=== PATIENT | male | born 1985 | race Hispanic/Latino ===

== ENCOUNTER 2017-05-11 21:24 | Inpatient (IN) | payer OTHER ==
[2017-05-11] MEDS ORDERED: HYDROmorphone 0.5 mg/0.5 ml ISec IVP STA (22:25)
--- NOTE | 2017-05-11 22:46 | ED PDOC ---
Upper Extremity Pain/Injury Time Seen by Provider: 05/11/17 22:04 Chief Complaint (Nursing): Upper Extremity Problem/Injury Chief Complaint (Provider): upper injury History Per: Patient (32 y/o here with complaint of right arm injury that occurred today during armwrestling. Has h/o previous elbow dislocation.) Past Medical History Reviewed: Historical Data, Nursing Documentation, Vital Signs Vital Signs: Last Vital Signs Temp 98.0 F 05/11/17 21:41 Pulse 96 H 05/11/17 21:41 Resp 16 05/11/17 21:41 BP 200/117 H 05/11/17 21:41 Pulse Ox 100 05/11/17 21:41 - Surgical History Surgical History: Tonsillectomy - Family History Family History: States: No Known Family Hx - Allergies Allergies/Adverse Reactions: Allergies Allergy/AdvReac Type Severity Reaction Status Date / Time No Known Allergies Allergy Verified 05/11/17 21:40 Review of Systems ROS Statement: Except As Marked, All Systems Reviewed And Found Negative Physical Exam - Reviewed Nursing Documentation Reviewed: Yes Vital Signs Reviewed: Yes - Physical Exam Appears: Positive for: Well, Non-toxic, No Acute Distress Head Exam: Positive for: ATRAUMATIC, NORMAL INSPECTION, NORMOCEPHALIC Skin: Positive for: Normal Color, Warm, DRY Eye Exam: Positive for: EOMI, Normal appearance, PERRL ENT: Positive for: Normal ENT Inspection Neck: Positive for: Normal, Painless ROM Cardiovascular/Chest: Positive for: Regular Rate, Rhythm Respiratory: Positive for: CNT, Normal Breath Sounds Gastrointestinal/Abdominal: Positive for: Normal Exam, Bowel Sounds, Soft Back: Positive for: Normal Inspection Extremity: Positive for: Normal ROM, Other (tenderness noted by elbow. Patient noted moderate tenderness instability distal humerus. Nontender shoulder.) Neurologic/Psych: Positive for: Alert, Oriented - Laboratory Results Result Diagrams: 05/11/17 22:50 05/11/17 22:50 - ECG O2 Sat by Pulse Oximetry: 100 - Progress ED Course And Treament: dilaudid 1 mg iv x 1 dose placed in sugartong splint for comfort. Xry of elbow: fx of mid-humerus with dislocation xry of shoulder: no fx xry of forearm: no fx xry of humerus: (+) fx mid-humerus dislocation d/w Dr. Kamara. Seen with Dr. Kamara for reduction. Verbal consent prior to procedure. Lidocaine 1% 10 ml hematoma block by Dr. kamara prior to procedure. Arm placed in sugartong splint. d/w Dr. Cárdenas ativan 0.5 mg iv x 1 dose for anxiety Disposition - Clinical Impression Clinical Impression: Humerus shaft fracture - Patient ED Disposition Is Patient to be Admitted: Yes - Disposition Disposition: Transfer of Care Disposition Time: 00:26 Condition: FAIR Patient Signed Over To: Brittney Riddle Handoff Comments: repeat xry/ekg/cxr - Pt Status Changed To: Hospital Disposition Of: Inpatient - Admit Certification Admit to Inpatient:: After my assessment, the patient will require hospitalization for at least two midnights. This is because of the severity of symptoms shown, intensity of services needed, and/or the medical risk in this patient being treated as an outpatient.
[2017-05-11 23:01] LABS: BASO % 0.4 % (0.0-2.0); EOS % 0.4 % (0.0-4.0); HEMOGLOBIN 15.5 g/dL (12.0-18.0); LYMPH # 2.7 K/uL (1.0-4.3); LYMPH % 20.8 % (20.0-40.0); MEAN CELL VOLUME 89.6 fl (80.0-94.0); MEAN CORPUSCULAR HEMOGLOBIN 29.3 pg (27.0-31.0); MEAN CORPUSCULAR HGB CONC 32.7 g/dL (33.0-37.0); MEAN PLATELET VOLUME 7.5 fl (7.2-11.7); MONO # 0.6 K/uL (0.0-0.8); MONO % 4.7 % (0.0-10.0); NEUT # 9.4 K/uL (1.8-7.0); NEUT % 73.7 % (50.0-75.0); NRBC % 0.1 % (0.0-0.0); RBC 5.3 Mil/uL (4.40-5.90); RED CELL DISTRIBUTION WIDTH 12.7 % (11.5-14.5); WHITE BLOOD COUNT 12.8 K/uL (4.8-10.8)
[2017-05-11 23:05] LABS: BLOOD UREA NITROGEN 15 mg/dl (9-20); GFR AFRICAN-AMERICAN > 60; GFR NON-AFRICAN AMERICAN > 60
[2017-05-11 23:06] LABS: INR 0.9 (0.9-1.2); PARTIAL THROMBOPLASTIN TIME 26.7 Seconds (25.6-37.1); PROTHROMBIN TIME 9.8 Seconds (9.8-13.1)
[2017-05-11] MEDS ORDERED: Lidocaine 1% Inj (20ml) IJ ONE (23:18)
[2017-05-11] MEDS ORDERED: Lidocaine 1% Inj (20ml) ONE (23:23)
[2017-05-12] MEDS ORDERED: Sodium Chloride 0.9% 1,000 ML IV STA (00:12)
[2017-05-12] MEDS ORDERED: Morphine 4 MG/ML VIAL ONE (00:53)
[2017-05-12 02:40] VITALS: RESP 20
[2017-05-12 02:42] VITALS: TEMP 98.3
[2017-05-12 08:14] VITALS: BP 121/67; PULSE 77; O2SAT 98
--- NOTE | 2017-05-12 08:27 | RAD ---
PROCEDURE: Radiographs of the right humerus. HISTORY: post reduction COMPARISON: None. FINDINGS: BONES: There is evidence of a mildly angulated fracture of the mid the distal portion of the right humerus. Right shoulder and visualized right elbow appear grossly intact without dislocation. SOFT TISSUES: Normal. OTHER FINDINGS: None. IMPRESSION: Fracture right humerus.
--- NOTE | 2017-05-12 08:36 | RAD ---
PROCEDURE: Radiographs of the right humerus. HISTORY: FX HUMERUS COMPARISON: None. FINDINGS: BONES: There is evidence of an angulated fracture of the right humerus in its mid the distal portion. Proximal right humerus appears normal in outline and location. There is limited visualization of the right elbow due to angulation although no appreciable fracture or dislocation is seen. SOFT TISSUES: Overlying splint is noted. There may be a few tiny fragments seen in the soft tissues anterior to the distal humerus. OTHER FINDINGS: None. IMPRESSION: Fracture distal right humerus.
--- NOTE | 2017-05-12 08:41 | RAD ---
PROCEDURE: Radiographs of the Right Forearm HISTORY: ELBOW DISLOCATION COMPARISON: None available. TECHNIQUE: Frontal and lateral views obtained. FINDINGS: BONES: A splint overlies the right forearm region. Distal forearm is intact. Visualized carpal bones are intact. Proximal to mid right radius and ulna appear grossly intact on the images presented. No appreciable right elbow dislocation is noted although exam is limited by obliquity. JOINT SPACES: No appreciable dislocation. OTHER FINDINGS: None. IMPRESSION: No appreciable fracture in the right forearm region. Exam is limited by obliquity. No appreciable elbow joint dislocation is seen.
--- NOTE | 2017-05-12 08:43 | RAD ---
PROCEDURE: Radiographs of the right elbow. HISTORY: ELBOW DISLOCATION COMPARISON: No prior. FINDINGS: BONES: There is a distal left humeral fracture noted. On the frontal view no appreciable elbow joint dislocation is clearly seen. Medial and lateral epicondyles are grossly intact. No gross elbow joint effusion is seen. Olecranon is intact. JOINTS: Normal. No osteoarthritis. SOFT TISSUES: Normal. JOINT EFFUSION: None. OTHER FINDINGS: None. IMPRESSION: Distal left humeral fracture. No appreciable elbow joint fracture or dislocation although the exam is limited by obliquity and positioning of the radiographs.
--- NOTE | 2017-05-12 12:14 | CARD ---
APPROVED REPORT EKG Measurement Heart [id number] <Conclusion> Normal sinus rhythm Normal ECG
--- NOTE | 2017-05-12 17:41 | CP.PCM.HP ---
History of Present Illness - History of Present Illness History of Present Illness: This is a 32 y/o male with no significant medical hx who sustained a right distal humeral fracture while doing arm wrestling. Past Patient History - Past Medical History & Family History Past Medical History?: Yes - Past Social History Smoking Status: Never Smoked - MUSCULOSKELETAL/RHEUMATOLOGICAL Hx Falls: No - PSYCHIATRIC Hx Substance Use: No - SURGICAL HISTORY Hx Tonsillectomy: Yes - ANESTHESIA Hx Anesthesia: Yes Hx Anesthesia Reactions: No Hx Malignant Hyperthermia: No Meds Allergies/Adverse Reactions: Allergies Allergy/AdvReac Type Severity Reaction Status Date / Time No Known Allergies Allergy Verified 05/11/17 21:40 Results - Vital Signs Recent Vital Signs: Last Vital Signs Temp 98.3 F 05/12/17 08:13 Pulse 77 05/12/17 08:13 Resp 20 05/12/17 08:13 BP 121/67 05/12/17 08:13 Pulse Ox 98 05/12/17 08:13 - Labs Result Diagrams: 05/11/17 22:50 05/11/17 22:50 Labs: Laboratory Results - last 24 hr 05/11/17 05/11/17 05/11/17 22:50 22:50 22:50 WBC 12.8 H RBC 5.30 Hgb 15.5 Hct 47.5 MCV 89.6 MCH 29.3 MCHC 32.7 L RDW 12.7 Plt Count 302 MPV 7.5 Neut % (Auto) 73.7 Lymph % (Auto) 20.8 [place] % (Auto) 4.7 Eos % (Auto) 0.4 Baso % (Auto) 0.4 Neut # 9.4 H Lymph # 2.7 [place] # 0.6 Eos # 0.0 Baso # 0.0 PT 9.8 INR 0.9 APTT 26.7 Sodium 141 Potassium 4.2 Chloride 104 Carbon Dioxide 23 Anion Gap 18 BUN 15 Creatinine 0.9 Est GFR ( Amer) > 60 Est GFR (Non-Af Amer) > 60 Random Glucose 113 H Calcium 9.0
== END 2017-05-12 11:28 | disposition home or self-care (01) | DRG 563 ==
LOC: H.ER 21:24 → H.ERHOLD 05-12 → H.MEDSURG1 05-12 02:00
PROVIDERS: ADMIT Family Medicine; ATTEND Family Medicine
DX: S42.301A Unspecified fracture of shaft of humerus, right arm, initial encounter for closed fracture (principal); X58.XXXA Exposure to other specified factors, initial encounter; Y93.79 Activity, other specified sports and athletics; Y92.9 Unspecified place or not applicable

== ENCOUNTER 2017-05-15 07:11 | Day surgery (SDC) | payer OTHER ==
--- NOTE | 2017-05-15 07:56 | ED PDOC ---
Upper Extremity Pain/Injury Time Seen by Provider: 05/15/17 07:31 Chief Complaint (Nursing): Upper Extremity Problem/Injury History Per: Patient History/Exam Limitations: no limitations Onset/Duration Of Symptoms: Days (4), Sudden Onset Current Symptoms Are (Timing): Still Present Quality: Dull Severity: Moderate Exacerbating Factor(s): Movement Additional History Per: Patient, Family Additional Complaint(s): Patient was seen in this ER 2 days ago, was referred to Dr. Cárdenas for fractured humerus. pt states worsening pain. pt in splint no other injury no hand n/t/w. Past Medical History Reviewed: Historical Data, Nursing Documentation, Vital Signs Vital Signs: Last Vital Signs Temp 98.2 F 05/15/17 07:26 Pulse 87 05/15/17 07:26 Resp 16 05/15/17 07:26 BP 134/85 05/15/17 07:26 Pulse Ox 97 05/15/17 07:26 - Medical History PMH: No Chronic Diseases - Surgical History Surgical History: Tonsillectomy (and Adenoids) - Family History Family History: States: Unknown Family Hx - Living Arrangements Living Arrangements: With Family - Social History Current smoker - smoking cessation education provided: No - Home Medications Home Medications: Ambulatory Orders Medication Instructions Recorded Oxycodone HCl/Acetaminophen 1 each PO TID PRN 05/15/17 [Percocet 10-325 mg Tablet] traMADol [Ultram] 50 mg PO TID PRN 05/15/17 - Allergies Allergies/Adverse Reactions: Allergies Allergy/AdvReac Type Severity Reaction Status Date / Time No Known Allergies Allergy Verified 05/11/17 21:40 Review of Systems ROS Statement: Except As Marked, All Systems Reviewed And Found Negative Constitutional: Negative for: Fever, Chills Cardiovascular: Negative for: Chest Pain, Palpitations Respiratory: Negative for: Shortness of Breath Gastrointestinal: Negative for: Nausea, Vomiting Musculoskeletal: Positive for: Arm Pain (right upper arm) Neurological: Negative for: Weakness, Numbness Physical Exam - Reviewed Nursing Documentation Reviewed: Yes Vital Signs Reviewed: Yes - Physical Exam Appears: Positive for: Uncomfortable Head Exam: Positive for: ATRAUMATIC, NORMAL INSPECTION, NORMOCEPHALIC Eye Exam: Positive for: Normal appearance Neck: Positive for: Normal, Painless ROM, Supple Cardiovascular/Chest: Positive for: Regular Rate, Rhythm, Chest Non Tender. Negative for: Edema, Gallop, Murmur, Bradycardia, Tachycardia Respiratory: Positive for: Normal Breath Sounds. Negative for: Decreased Breath Sounds, Accessory Muscle Use, Crackles, Rales, Rhonchi, Stridor, Wheezing Pulses-Radial (L): 2+ Pulses-Radial (R): 2+ Gastrointestinal/Abdominal: Positive for: Normal Exam, Bowel Sounds, Soft. Negative for: Tenderness Back: Positive for: Normal Inspection. Negative for: L CVA Tenderness, R CVA Tenderness Extremity: Positive for: Other (right arm in ortho glass splint, hand nvi) Neurologic/Psych: Positive for: Alert, executive receptionist II-XII, Oriented. Negative for: Motor/Sensory Deficits - Laboratory Results Result Diagrams: 05/15/17 08:43 05/15/17 08:43 - ECG O2 Sat by Pulse Oximetry: 97 Pulse Ox Interpretation: Normal Disposition - Clinical Impression Clinical Impression: Humerus shaft fracture - Patient ED Disposition Is Patient to be Admitted: Yes Counseled Patient/Family Regarding: Studies Performed - Disposition Disposition Time: 09:00 Condition: FAIR - Pt Status Changed To: Hospital Disposition Of: Observation - POA Present On Arrival: None
[2017-05-15 08:50] LABS: BASO % 0.3 % (0.0-2.0); EOS # 0.1 K/uL (0.0-0.7); HEMOGLOBIN 14.3 g/dL (12.0-18.0); LYMPH % 19.1 % (20.0-40.0); MEAN CELL VOLUME 90.1 fl (80.0-94.0); MEAN CORPUSCULAR HEMOGLOBIN 30.5 pg (27.0-31.0); MEAN CORPUSCULAR HGB CONC 33.9 g/dL (33.0-37.0); MEAN PLATELET VOLUME 7.7 fl (7.2-11.7); MONO # 0.7 K/uL (0.0-0.8); MONO % 7.2 % (0.0-10.0); NEUT # 7.5 K/uL (1.8-7.0); NEUT % 72.4 % (50.0-75.0); NRBC % 0.1 % (0.0-0.0); RBC 4.68 Mil/uL (4.40-5.90); RED CELL DISTRIBUTION WIDTH 13.3 % (11.5-14.5); WHITE BLOOD COUNT 10.4 K/uL (4.8-10.8)
[2017-05-15 09:12] LABS: BLOOD UREA NITROGEN 9 mg/dl (9-20); CALCIUM 9.2 mg/dL (8.4-10.2); GFR AFRICAN-AMERICAN > 60; GFR NON-AFRICAN AMERICAN > 60
[2017-05-15 09:19] LABS: INR 0.9 (0.9-1.2); PROTHROMBIN TIME 9.9 Seconds (9.8-13.1)
--- NOTE | 2017-05-15 11:51 | RAD ---
PROCEDURE: Radiographs of the right humerus. HISTORY: pain known fracture COMPARISON: Right humeral radiographs dated 05/12/2017. FINDINGS: Displaced distal humeral fracture is redemonstrated without significant change in appearance or alignment. No new fracture or significant interval changes identified. IMPRESSION: Findings as above.
[2017-05-15] MEDS ORDERED: Morphine 4 MG/ML VIAL ONE (11:55)
[2017-05-15] MEDS ORDERED: Propofol 10 mg/ml Inj (20 ML) ONE (14:21)
[2017-05-15] MEDS ORDERED: Rocuronium 10 mg/ml (5 ml) ONE ×3 (14:21→16:25)
[2017-05-15] MEDS ORDERED: Succinylcholine 200 mg/10 ml Inj IV ONE (14:22)
[2017-05-15] MEDS ORDERED: Midazolam 2 MG/2 ML VIAL ONE (14:25)
[2017-05-15] MEDS ORDERED: ceFAZolin IV 1 gm in Dextrose 2 GM/100 ML BAG IVPB ONE (14:38)
[2017-05-15] MEDS ORDERED: Thrombin Topical 5,000 Int Units Spray Kit ONE (14:38)
[2017-05-15] MEDS ORDERED: Bupivacaine 0.5% Inj(30mL) ONE ×2 (14:38→14:40)
[2017-05-15] MEDS ORDERED: Absorbable Gelatin Sponge Size 100 ONE (14:38)
[2017-05-15] MEDS ORDERED: Lidocaine 1% Inj (20ml) ONE (14:38)
[2017-05-15] MEDS ORDERED: Bacitracin Ointment 30 GM TUBE ONE (14:38)
[2017-05-15] MEDS ORDERED: Lactated Ringer's 1,000 ML IV ONE ×3 (14:42→17:49)
[2017-05-15] MEDS ORDERED: Dexamethasone 4 mg/1 ml ONE (15:39)
[2017-05-15] MEDS ORDERED: HYDROmorphone 0.5 mg/0.5 ml ISec IVP PRN (17:58)
[2017-05-15] MEDS ORDERED: Lactated Ringer's 1,000 ML IV SCH (18:00)
--- NOTE | 2017-05-15 18:14 | PCM.ANESB1 ---
Interscalene Block - Brachial Plexus Date of Procedure: 05/15/17 Anesthesiologist: Jessica Pre-Procedure Diagnosis: Right humerus fracture Procedure Performed: Interscalene Block of Brachial Plexus Right - Procedure Interscalene Block of Brachial Plexus: This procedure was explained to the patient that it is for post-operative pain management. Consent was obtained after a thorough discussion with the patient regarding the benefits and possible complications of local anesthetic block of the Brachial Plexus at the Interscalene area. The patient insisted on having the block performed under general anesthesia. The patient was informed that peripheral nerve blocks performed under general anesthesia can increase the risk of intraneural injection. the patient insisted that the procedure be done under general anesthesia The patient was brought to the Operating Room and standard monitors were applied. Time out was held with the circulating nurse to confirm the correct surgery and appropriate block. Under general anesthesia, the patient's head was gently rotated away from the __right____operative shoulder and the anterior scalene groove was carefully palpated. The ultrasound transducer was then applied to the skin in the transverse plane and the brachial plexus was visualized lateral to the carotid artery and in between the anterior and middle scalene muscles. After identification,the anterior lateral portion of the neck was prepped with Chloraprep. At this point, a # 22 gauge Stimuplex 2 inches insulated needle was inserted into the interscalene groove and directed in a caudal and midline direction. The needle was inserted lateral to the ultrasound transducer in-plane towards the brachial plexus in a [id number] direction. Needle advancement was performed carefully under direct ultrasound visualization. Nerve stimulator was used and twitched of the affected extremity including the hand brachialis muscles, biceps and the deltoid was obtained at a current of __0.4___MA. After repeated negative aspiration,__2___cc of__0.5%___,____bupivicaine with 1:200, 000 epinephrine were injected and this was followed with __23___cc of % 0.5%___,____bupivicaine with 1:200,000 epinephrine . Under ultrasound guidance the local anesthetics were observed surrounding the roots of the brachial plexus. The needle was removed intact. The patient had stable vital signs, was conscious and in no apparent distress. The patient tolerated the interscalene block of the bracheal plexus well with stable vital signs and was prepared for subsequent surgery. During the procedure, patient reacted hemodynamicaly when stimulated in the C5- C6 nerve distribution. At the conclusion of the procedure,Time out was held with the circulating nurse to confirm the correct surgery and appropriate block. Under general anesthesia, the patient's head was gently rotated away from the __right____operative shoulder and the anterior scalene groove was carefully palpated. The ultrasound transducer was then applied to the skin in the transverse plane and the brachial plexus was visualized lateral to the carotid artery and in between the anterior and middle scalene muscles. After identification,the anterior lateral portion of the neck was prepped with Chloraprep. At this point, a # 22 gauge Stimuplex 2 inches insulated needle was inserted into the interscalene groove and directed in a caudal and midline direction. The needle was inserted lateral to the ultrasound transducer in-plane towards the brachial plexus in a [id number] direction. Needle advancement was performed carefully under direct ultrasound visualization. Nerve stimulator was used and twitched of the affected extremity including the hand brachialis muscles, biceps and the deltoid was obtained at a current of __0.4___MA. After repeated negative aspiration,__2___cc of__0375%_ropivicaine__were injected and this was followed with __8___cc of % 0.375%___,____ropivicaine ___. Under ultrasound guidance the local anesthetics were observed surrounding the roots of the brachial plexus specifically around superior portion of the plexus. The needle was removed intact and a sterile dressing applied. The patient had stable vital signs, and was prepared for emergence.
[2017-05-15] MEDS ORDERED: Oxycodone/Acetaminophen 5/325 mg Tab PO PRN (19:12)
[2017-05-15 20:23] VITALS: BP 153/90; PULSE 87; RESP 17; TEMP 98.1; O2SAT 95
--- NOTE | 2017-05-16 11:01 | PCM.SURG1 ---
Surgeon's Initial Post Op Note - Surgeon's Notes Surgeon: manish Finishing Machine Operator Automatic: thelma Type of Anesthesia: General Endo Pre-Operative Diagnosis: displaced humeral shaft fx Operative Findings: see dictation Post-Operative Diagnosis: same Operation Performed: ORIF humerus Specimen/Specimens Removed: none Estimated Blood Loss: EBL {In ML}: 200 Date of Surgery/Procedure: 05/15/17 Time of Surgery/Procedure: 03:00
--- NOTE | 2017-05-16 11:13 | CARD ---
APPROVED REPORT EKG Measurement Heart [id number] MT [id number] <Conclusion> Normal sinus rhythm Normal ECG
--- NOTE | 2017-05-16 12:59 | RAD ---
PROCEDURE: Radiographs of the right humerus. HISTORY: s/p Right distal humerus ORIF COMPARISON: None. FINDINGS: BONES: Lateral orthopedic plate with 8 screws transfixing a distal humeral fracture. Anatomical alignment suggested on this single available oblique view. Overlying skin sutures present. SOFT TISSUES: Normal. OTHER FINDINGS: None. IMPRESSION: Open reduction internal fixation of a right humeral shaft fracture. No displacement appreciated.
--- NOTE | 2017-05-16 22:12 | CON ---
DATE: REASON FOR CONSULTATION: Right humeral shaft trauma. HISTORY OF PRESENT ILLNESS: A 32-year-old right hand dominant male presents to [place] emergency room with complaint of right arm pain with movement. The patient states he was arm wrestling when he heard a loud snap and break in his right upper arm. He presents with severe pain, swelling, difficulty using his arm. Initial x-rays confirmed displaced humeral shaft fracture. I was consulted for further evaluation and treatment options. PAST MEDICAL HISTORY: None. PAST SURGICAL HISTORY: Tonsil surgery. ALLERGIES: NONE. PHYSICAL EXAMINATION: EXTREMITIES: Right arm: Skin is intact. There is tenderness to palpation over the mid shaft humerus. Patient has difficulty bending his elbow due to pain. He has stiffness with wrist extension and paresthesia over the radial nerve distribution. Distal pulses +2. The hand is warm and well perfused. Compartments are soft. Left upper extremity: Full range of motion, no instability, no bony tenderness. LABORATORY DATA: X-rays were seen and reviewed. X-ray findings confirmed a long, spiral, oblique at the distal one-third of the humeral shaft fracture with displacement. ASSESSMENT: 1. Right humeral shaft distal third oblique fracture with displacement. 2. Right radial nerve palsy. PLAN: I discussed the above findings with the patient and recommended surgery for wound exploration, evaluation of his radial nerve, neuroplasty with humeral shaft open reduction and internal fixation. Risks and benefits of the surgery were explained which included but not limited to bleeding, infection, tendon, nerve, vessel injury, instability, chronic pain, potential need for additional surgery. Patient was taken urgently to the operating room for wound exploration and the above procedures. Richardson Cárdenas MD [facility]
--- NOTE | 2017-05-16 22:26 | OP ---
PROCEDURE DATE: 05/15/2017 PREOPERATIVE DIAGNOSES: 1. Displaced right third humeral shaft fracture. 2. Right radial nerve palsy. POSTOPERATIVE DIAGNOSES: 1. Displaced right third humeral shaft fracture. 2. Right radial nerve palsy. PROCEDURE: 1. Right humeral shaft open reduction and internal fixation with Synthes locking plate, 29436. 2. Right humeral shaft wound exploration, radial nerve neuroplasty, 70834. 3. Right humeral shaft open debridement of muscle and bone, 84846. 4. Use of intraoperative fluoroscopy more than 1 hour, 01371. SURGEON: Richardson Cárdenas MD. POLITICAL ANALYST: Jose Vences MD. SECOND POLITICAL ANALYST: ASHER Jorge. ANESTHESIA: Right upper extremity block and general anesthesia. ESTIMATED BLOOD LOSS: 200 mL. COMPLICATIONS: None. SPECIMEN: None. DISPOSITION: Stable to recovery room. INDICATIONS: A 32-year-old male, who presents to emergency room with trauma to the right upper extremity and radial nerve palsy confirming distal third humeral shaft fracture. Patient was indicated for above surgery for wound exploration, nerve exploration and repair. He was taken urgently to the operating room for surgery. Risks included, but not limited to bleeding, infection, tendon, nerve and vessel injury, instability, chronic pain, potential need for additional surgery in the future. The patient understood the above risks and elected to proceed. DESCRIPTION OF PROCEDURE: The patient was brought to the operating room and placed supine on the operating room table. After local right upper extremity anesthesia was given followed by general anesthesia by the anesthesiologist, the patient was placed into the lateral decubitus position. Prophylactic antibiotics were given. The right upper extremity was then prepped and draped in standard surgical fashion. A timeout was performed. Posterior incisionm was outlined on the humerus. A longitudinal incision was made over the humeral shaft. The superficial veins were cauterized, dissection was carried down identifying the triceps fascia, the triceps fascia was incised. Next, work was begun on identifying the superficial lateral antecubital nerve. The nerve was identified anterior to the intermuscular septum. It was traced back to the lateral intermuscular septum. The septum was incised tracing the nerve back. We identified the radial ulnar nerve and neurovascular bundle. The radial nerve was kinked in the fracture site. However, the nerve was fully continuous. Neuroplasty of the nerve was performed over the fracture site and the nerve was mobilized. A vessel loop was placed around the nerve for further protection. The fracture site was then identified and with the use of rongeur and curette, bone debridement and local soft tissue muscle was debrided. Hematoma was evacuated. There was local disruption of the posterior muscles, which required debridement with a rongeur and curette. Intraoperative fluoroscopy was used to confirm the fracture site. The bony cortex at the fracture site was also debrided. The free edges of the fracture site were identified. This showed a long oblique spiral fracture. It was reduced under direct visualization with arm in extension position traction and use of 2 heavy reduction clamps. The 2 ends of the fracture site keyed in to each other. They were held provisionally with reduction clamps and K-wires. Fluoroscopy confirmed anatomic reduction of the fracture. Two cortical screws were then placed across the fracture site in a lag technique. After this, an appropriate length LC-DCP Synthes extraarticular long plate was selected and placed over the posterior lateral aspect of the humerus. The plate was slid under the radial nerve neurovascular bundle with care to prevent injuries to nerve. Next, a combination of locking and nonlocking screws were placed in a standard AO technique into the plate for a total of 6 screws. All screws were of appropriate length. Reduction was confirmed and held and checked with fluoroscopy. Next, the radial nerve was released from the vessel loop and placed on top of the plate. The radial nerve crossed the first proximal screw. The arm was then taken through full range of motion, showed stability with no gapping and checked with fluoroscopic images. The wound was then copiously irrigated. The deep layers were then closed with 0 Vicryl, followed by 2-0 Vicryl for subcuticular sutures, followed by sky for skin. Sterile dressings were applied. Patient was placed into a sling and was extubated and returned to recovery room in excellent condition. During the surgery, I was assisted by Dr. Jose Vences, a board certified orthopedic surgeon and help was needed for proper patient positioning, nerve identification and primary reduction of the fracture. His help was medically necessary to provide intraoperative safety for this patient. Richardson Cárdenas MD [facility]
--- NOTE | 2017-05-17 19:26 | RAD ---
PROCEDURE: Intraoperative Fluoroscopy. HISTORY: Fracture right humerus FINDINGS: Fluoroscopic assistance was provided for open reduction internal fixation of right humeral fracture. Please refer to the operative with acute of radiation dose of 0.65 mGy.
== END 2017-05-15 22:30 | disposition home or self-care (01) ==
LOC: H.ER 07:11 → H.SDS 10:06 → H.MEDSURG1 19:52 → H.SDS 22:30
PROVIDERS: ATTEND Orthopaedic Surgery
DX: S42.391A Other fracture of shaft of right humerus, initial encounter for closed fracture (principal); X58.XXXA Exposure to other specified factors, initial encounter; G56.31 Lesion of radial nerve, right upper limb; Y93.72 Activity, wrestling
CPT/HCPCS: 24515; 64713; 73060; 80048; 85025; 85610; 85730; 86850; 86900; 93005; 96374; 96375; 99284; C1713; J0330; J0690; J1100; J1170; J2001; J2250; J2270; J2405; J2704; J2765; J3010; J7030; J7120